=== PATIENT | male | born 1990 | race Caucasian/White ===

== ENCOUNTER 2019-01-15 07:18 | Day surgery (SDC) | payer OTHER ==
[~2019-01-15] VITALS: Ht 170.2 cm; Wt 63.3 kg
[~2019-01-15 07:18] MED LIST: Augmentin 875-1 EACH PO; Bactrim Ds Tab1 EACH PO; HYDACE5 PO; Norco 5-325 Ta1 EACH PO; OXYC10ER; Percocet 10-321 EACH PO; Vibramycin100 MG PO
--- NOTE | 2019-01-15 08:18 | NUR ---
PATIENT GAVE PERMISSION FOR ME TO CARE FOR HIM TODAY 01/15/19. History, Chart, Medications and Allergies reviewed before start of procedure.Patient confirms NPO status and agrees with scheduled surgery. Patient reports completing Chlorhexadine shower X2 prior to admission to hospital.Surgical site prepped with 2% Chlorhexidine cloth wipe. Lungs clear T/O to Auscultation.
--- NOTE | 2019-01-15 08:31 | NUR ---
STUDENT NURSE ASSISTING IN PREOP CARE. AGREE WITH HER CHARTING AND CARE
== END 2019-01-15 23:02 | disposition home or self-care (01) ==
LOC: ORSCMMR 07:18 → ORD 08:30 → ORSCMMR 23:02
PROVIDERS: Orthopaedic Surgery
PROC: 0SBC4ZZ Excision of Right Knee Joint, Percutaneous Endoscopic Approach (ICD-10-PCS; principal; 2019-01-15 08:30)
DX: S83.211D Bucket-handle tear of medial meniscus, current injury, right knee, subsequent encounter (principal); Z87.891 Personal history of nicotine dependence
CPT/HCPCS: C1713; J0171; J0690; J1100; J1885; J2250; J2405; J2704; J3010; J7120